=== PATIENT | female | born 1960 | race Caucasian/White ===

== ENCOUNTER 2017-02-09 18:46 | Emergency (ER) | payer BC ==
[2017-02-09 18:12] LABS: INTERNATIONAL NORMAL RATI 2.9 UNITS (-); PARTIAL THROMBO TIME 61.7 SEC (22.5-37.2)
[2017-02-09 18:14] LABS: PROTIME (NOT ORD) 29.7 SEC (12.0-14.5)
[~2017-02-09 18:46] MED LIST: EFFEX75 PO; KAPIDEX60 MG PO; LORTAB10 PO; PR25 PO; REG PO; SOMATAB PO; XANAX1 MG PO
== END 2017-02-09 18:49 | disposition home or self-care (01) ==
LOC: ER 18:46
PROVIDERS: Physician Assistant
DX: M54.5 Low back pain (principal); I10 Essential (primary) hypertension; Z88.1 Allergy status to other antibiotic agents; Z88.2 Allergy status to sulfonamides; Z88.5 Allergy status to narcotic agent; Z88.6 Allergy status to analgesic agent; Z88.8 Allergy status to other drugs, medicaments and biological substances; Z79.899 Other long term (current) drug therapy
CPT/HCPCS: 72100; 85610; 85730; 93005; 96372; 99284; J1170